=== PATIENT | female | born 1990 | race Caucasian/White ===

== ENCOUNTER 2018-04-01 01:32 | Emergency (ER) | payer OTHER ==
[2018-04-01] MEDS ORDERED: Phenergan 25 MG INJ IV ONE (01:56)
[2018-04-01] MEDS ORDERED: Sodium Chloride 0.9% 1000 ML 1,000 ML IV STA ×2 (01:56→02:38)
[2018-04-01] MEDS ORDERED: Sodium Chloride 0.9% 1000 ML 1,000 ML ONE ×2 (02:00→03:24)
[2018-04-01] MEDS ORDERED: Phenergan 25 MG INJ ONE (02:00)
--- NOTE | 2018-04-01 02:02 | ERPHSYRPT ---
- History of Present Illness Time Seen by Provider: 04/01/18 01:52 Historian: patient Exam Limitations: no limitations Patient Subjective Stated Complaint: pt states she has been having lower abd/ pelvic and lower back pain for approx 1 hour. Triage Nursing Assessment: pt alert and oriented, answers questions approp. pt ambulaotry with steady gait ntoed, respirations nonlabored with lungs cta. abd soft with hypo bowel opunds noted in all 4 quads. no urine assessed, pt unable to urinate at this time. Physician History: 27-year-old white female with history of diabetes, hypothyroidism, arrives with complaint of lower abdominal pain bilateral suprapubic and periumbilical also lower back pain symptoms for one hour. Patient states she's had nausea no vomiting. She denies any dysuria or hematuria. Past medical history includes type 1 diabetes, hypothyroidism Past surgical history includes partial thyroidectomy. Timing/Duration: today (symptoms for an hour) Activities at Onset: none Quality: aching, cramping Abdominal Pain Onset Location: RLQ, LLQ, periumbilical, other (low back) Pain Radiation: back (low back) Severity of Pain-Max: moderate Severity of Pain-Current: moderate Modifying Factors: Improves With: nothing Associated Symptoms: back (low back pain), nausea, No chest pain, No diaphoresis , No diarrhea, No fever/chills, No fatigue, No headache, No heartburn, No loss of appetite, No neck pain, No rash, No shortness of breath, No syncope, No vomiting, No weakness Previous symptoms: no prior history Allergies/Adverse Reactions: No Known Drug Allergies Allergy (Verified 04/01/18 01:51) Home Medications: Insulin Lispro [Humalog] 0 unit SQ UD 04/01/18 [History] Levothyroxine Sodium 100 Mcg [Synthroid 100 Mcg] 100 mcg PO DAILY 04/01/18 [History] Hx Tetanus, Diphtheria Vaccination/Date Given: Yes Hx Influenza Vaccination/Date Given: Yes Hx Pneumococcal Vaccination/Date Given: No Immunizations Up to Date: Yes - Review of Systems Constitutional: No Fever, No Chills Eyes: No Symptoms Ears, Nose, & Throat: No Symptoms Respiratory: No Cough, No Dyspnea Cardiac: No Chest Pain, No Edema, No Syncope Abdominal/Gastrointestinal: Abdominal Pain (abdominal pain bilatera suprapubic region and periumbilical region), Nausea, No Vomiting, No Diarrhea, No Constipation, No Hematemesis, No Hematochezia, No Melena, No Dysphagia, No Appetite Changes Genitourinary Symptoms: Vaginal Bleeding (patient states she started her menstrual period 40 minutes ago), No Dysuria, No Frequency, No Hematuria, No Hesitancy, No Incontinence, No Urgency, No Urinary Retention, No Flank Pain, No Menorrhagia, No , No Vaginal Discharge, No Vaginal Itching Musculoskeletal: Back Pain (low back pain), No Arthralgias, No Neck Pain, No Deformity, No Fall Skin: No Rash Neurological: No Dizziness, No Focal Weakness, No Sensory Changes Psychological: No Symptoms Endocrine: No Symptoms All Other Systems: Reviewed and Negative - Past Medical History Pertinent Past Medical History: Yes Endocrine Medical History: Diabetes Type I, Hypothyroidism - Past Surgical History Past Surgical History: Yes Other Surgical History: partial thyroidectomy - Social History Smoking Status: Never smoker Exposure to second hand smoke: No Drug Use: none Patient Lives Alone: No - Female History Hx Last Menstrual Period: yesterday Hx Now: No - Nursing Vital Signs Nursing Vital Signs: Initial Vital Signs Pulse Rate 90 04/01/18 01:40 Respiratory Rate 16 04/01/18 01:40 Blood Pressure 120/64 04/01/18 01:40 O2 Sat by Pulse Oximetry 99 04/01/18 01:40 Pain Scale Pain Intensity 4 - Physical Exam General Appearance: mild distress, alert Eye Exam: PERRL/EOMI, eyes nml inspection Ears, Nose, Throat Exam: normal ENT inspection, pharynx normal, moist mucous membranes Neck Exam: normal inspection, non-tender, supple, full range of motion Respiratory Exam: normal breath sounds, lungs clear, No respiratory distress Cardiovascular Exam: regular rate/rhythm, normal heart sounds Gastrointestinal/Abdomen Exam: soft, normal bowel sounds, tenderness ( Suprapubic and bilateral lower abdominal pain), No distention, No mass, No guarding, No ecchymosis, No pulsatile mass, No rebound, No hernia, No hepatomegaly, No organomegaly, No splenomegaly, No bruit Back Exam: normal range of motion, other (duster tender midline and bilateral low lumbar region with palpation), No CVA tenderness Extremity Exam: normal inspection, normal range of motion, pelvis stable Neurologic Exam: alert, oriented x 3, cooperative, family services specialist II-XII nml as tested, normal mood/affect, nml cerebellar function, sensation nml, No motor deficits Skin Exam: normal color, warm, dry SpO2 Interpretation: normal (99%) SpO2: 99 Oxygen Delivery: Room Air - Course Nursing assessment & vital signs reviewed: Yes Ordered Tests: Active Orders 24 hr Category Date Time Status Accucheck STAT Care 04/01/18 04:16 Active IV Insertion STAT Care 04/01/18 01:56 Active AMYLASE Stat Lab 04/01/18 02:10 Completed CBC W DIFF Stat Lab 04/01/18 02:10 Completed CMP Stat Lab 04/01/18 02:10 Completed HCG QUALITATIVE,SERUM Stat Lab 04/01/18 02:10 Completed LIPASE Stat Lab 04/01/18 02:10 Completed UA W/RFX UR CULTURE Stat Lab 04/01/18 02:57 Completed Urine Triage Profile Stat Lab 04/01/18 02:57 Completed VENOUS BLOOD GAS Urgent Lab 04/01/18 03:26 Completed Medication Summary Discontinued Medications Generic Name Dose Route Start Last Admin Trade Name Kimberly PRN Reason Stop Dose Admin Sodium Chloride 1,000 mls @ 999 mls/hr 04/01/18 01:56 04/01/18 04:30 Sodium Chloride 0.9% 1000 Ml IV 04/01/18 02:56 Infused .Q1H1M STA Infusion Sodium Chloride Confirm 04/01/18 02:00 Sodium Chloride 0.9% 1000 Ml Administered 04/01/18 02:01 Dose 1,000 mls @ ud .ROUTE .STK-MED ONE Sodium Chloride 1,000 mls @ 999 mls/hr 04/01/18 02:38 04/01/18 04:31 Sodium Chloride 0.9% 1000 Ml IV 04/01/18 03:38 Infused .Q1H1M STA Infusion Sodium Chloride Confirm 04/01/18 03:24 Sodium Chloride 0.9% 1000 Ml Administered 04/01/18 03:25 Dose 1,000 mls @ ud .ROUTE .STK-MED ONE Promethazine HCl 12.5 mg 04/01/18 01:56 04/01/18 02:18 Phenergan 25 Mg Inj IV 04/01/18 01:57 12.5 mg STAT ONE Administration Promethazine HCl Confirm 04/01/18 02:00 Phenergan 25 Mg Inj Administered 12/26/18 02:01 Dose 25 mg .ROUTE .STK-MED ONE Lab/Rad Data: Laboratory Result Diagrams 04/01/18 02:10 04/01/18 02:10 Laboratory Results 04/01/18 04/01/18 04/01/18 Range/Units 03:26 02:57 02:57 WBC (4.0-10.5) K/mm3 RBC (4.1-5.4) M/mm3 Hgb (12.0-16.0) gm/dl Hct (35-47) % MCV (78-100) fl MCH (26-32) pg MCHC (32-36) g/dl RDW (11.5-14.0) % Plt Count (150-450) K/mm3 MPV (6-9.5) fl Gran % (36.0-66.0) % Eos # (Auto) (0-0.5) Absolute Lymphs (auto) (1.0-4.6) Absolute Monos (auto) (0.0-1.3) Lymphocytes % (24.0-44.0) % Monocytes % (0.0-12.0) % Eosinophils % (0.00-5.0) % Basophils % (0.0-0.4) % Absolute Granulocytes (1.4-6.9) Basophils # (0-0.4) pO2/FiO2 Ratio 21.0 % VBG pH 7.41 (7.32-7.42) VBG pCO2 at Pat Temp 34 L (42-55) mm/Hg VBG pO2 at Pat Temp 52 H (25-40) mm/Hg VBG HCO3 21.6 L (22-28) meq/L VBG O2 Sat (Lesli) 92.8 L (95-100) VBG Base Excess -2.4 L (-2.0-2.0) VBG Hemoglobin 12.3 VBG Carboxyhemoglobin 3.1 (0.0-6.9) % T HGB POC Potassium 3.9 (3.5-5.1) Sodium (137-145) mmol/L Potassium (3.5-5.1) mmol/L Chloride (98-107) mmol/L Carbon Dioxide (22-30) mmol/L Anion Gap (5-15) MEQ/L BUN (7-17) mg/dL Creatinine (0.52-1.04) mg/dL Estimated GFR ML/MIN Glucose (74-106) mg/dL Calcium (8.4-10.2) mg/dL Total Bilirubin (0.2-1.3) mg/dL AST (14-36) U/L ALT (0-35) U/L Alkaline Phosphatase (38-126) U/L Serum Total Protein (6.3-8.2) g/dL Albumin (3.5-5.0) g/dL Amylase (30-110) U/L Lipase (23-300) U/L Serum , Qual (Negative) Urine Color STRAW (YELLOW) Urine Appearance CLEAR (CLEAR) Urine pH 7.0 (5-6) Ur Specific [place] 1.028 (1.005-1.025) Urine Protein NEGATIVE (Negative) Urine Ketones NEGATIVE (NEGATIVE) Urine Blood NEGATIVE (0-5) Can/ul Urine Nitrite NEGATIVE (NEGATIVE) Urine Bilirubin NEGATIVE (NEGATIVE) Urine Urobilinogen NEGATIVE (0-1) mg/dL Ur Leukocyte Esterase NEGATIVE (NEGATIVE) Urine WBC (Auto) NONE (0-5) /HPF Urine RBC (Auto) NONE (0-2) /HPF U Epithel Cells (Auto) NONE (FEW) /HPF Urine Bacteria (Auto) NONE (NEGATIVE) /HPF Urine Culture Reflexed NO (NO) Urine Glucose >=500 (NEGATIVE) mg/dL Urine Opiates Level NEGATIVE (NEGATIVE) Ur Methadone NEGATIVE (NEGATIVE) Urine Barbiturates NEGATIVE (NEGATIVE) Ur Phencyclidine (PCP) NEGATIVE (NEGATIVE) Urine Amphetamine NEGATIVE (NEGATIVE) U Benzodiazepine Level NEGATIVE (NEGATIVE) Urine Cocaine NEGATIVE (NEGATIVE) Urine Marijuana (THC) NEGATIVE (NEGATIVE) 04/01/18 04/01/18 04/01/18 Range/Units 02:10 02:10 02:10 WBC 7.0 (4.0-10.5) K/mm3 RBC 4.08 L (4.1-5.4) M/mm3 Hgb 12.7 (12.0-16.0) gm/dl Hct 37.5 (35-47) % MCV 91.9 (78-100) fl MCH 31.1 (26-32) pg MCHC 33.9 (32-36) g/dl RDW 12.0 (11.5-14.0) % Plt Count 251 (150-450) K/mm3 MPV 11.0 H (6-9.5) fl Gran % 62.9 (36.0-66.0) % Eos # (Auto) 0.20 (0-0.5) Absolute Lymphs (auto) 1.85 (1.0-4.6) Absolute Monos (auto) 0.51 (0.0-1.3) Lymphocytes % 26.5 (24.0-44.0) % Monocytes % 7.3 (0.0-12.0) % Eosinophils % 2.9 (0.00-5.0) % Basophils % 0.4 (0.0-0.4) % Absolute Granulocytes 4.38 (1.4-6.9) Basophils # 0.03 (0-0.4) pO2/FiO2 Ratio % VBG pH (7.32-7.42) VBG pCO2 at Pat Temp (42-55) mm/Hg VBG pO2 at Pat Temp (25-40) mm/Hg VBG HCO3 (22-28) meq/L VBG O2 Sat (Lesli) (95-100) VBG Base Excess (-2.0-2.0) VBG Hemoglobin VBG Carboxyhemoglobin (0.0-6.9) % T HGB POC Potassium (3.5-5.1) Sodium 137 (137-145) mmol/L Potassium 4.6 (3.5-5.1) mmol/L Chloride 104 (98-107) mmol/L Carbon Dioxide 24 (22-30) mmol/L Anion Gap 13.9 (5-15) MEQ/L BUN 11 (7-17) mg/dL Creatinine 0.51 L (0.52-1.04) mg/dL Estimated GFR > 60.0 ML/MIN Glucose 468 H (74-106) mg/dL Calcium 8.8 (8.4-10.2) mg/dL Total Bilirubin 0.90 (0.2-1.3) mg/dL AST 7 L (14-36) U/L ALT 10 (0-35) U/L Alkaline Phosphatase 81 (38-126) U/L Serum Total Protein 7.1 (6.3-8.2) g/dL Albumin 4.2 (3.5-5.0) g/dL Amylase 48 (30-110) U/L Lipase 83 (23-300) U/L Serum , Qual NEGATIVE (Negative) Urine Color (YELLOW) Urine Appearance (CLEAR) Urine pH (5-6) Ur Specific [place] (1.005-1.025) Urine Protein (Negative) Urine Ketones (NEGATIVE) Urine Blood (0-5) Can/ul Urine Nitrite (NEGATIVE) Urine Bilirubin (NEGATIVE) Urine Urobilinogen (0-1) mg/dL Ur Leukocyte Esterase (NEGATIVE) Urine WBC (Auto) (0-5) /HPF Urine RBC (Auto) (0-2) /HPF U Epithel Cells (Auto) (FEW) /HPF Urine Bacteria (Auto) (NEGATIVE) /HPF Urine Culture Reflexed (NO) Urine Glucose (NEGATIVE) mg/dL Urine Opiates Level (NEGATIVE) Ur Methadone (NEGATIVE) Urine Barbiturates (NEGATIVE) Ur Phencyclidine (PCP) (NEGATIVE) Urine Amphetamine (NEGATIVE) U Benzodiazepine Level (NEGATIVE) Urine Cocaine (NEGATIVE) Urine Marijuana (THC) (NEGATIVE) - Progress Progress: improved Progress Note: 04/01/18 03:55 27-year-old white female with history of hypothyroidism, diabetes type 1 who has an insulin pump. Arrives with complaint of lower abdominal pain for one hour since prior to arrival states she is also having low back pain. She is nauseous. Patient's vitals are stable she has some mild suprapubic and bilateral lower abdominal tenderness with palpation patient had elevated blood sugar of 468 however the patient was not acidotic Patient is being given 2 L of normal saline and 12.5 mg of Phenergan she is feeling better she states she feels somewhat tired. Patient's labs sodium 137 potassium 4.6 chloride 104 bicarbonate 24 BUN 11 creatinine 0.51 glucose 468 amylase and lipase are normal at 48 and 83 respectively patient's venous gases show a pH of 7.41 and a PCO2 of 34 urine drug screen is negative CBC white blood cell 7.0 hemoglobin 12.7 hematocrit 37.5 platelets are 251 urinalysis is unremarkable with the exception of a glucose of greater than 500. there are no ketones in the urine. HCG is negative. Impression lower abdominal pain, low back pain, hyperglycemia. Plan recheck Accu-Chek after 2 L of normal saline has been infused, 04/01/18 04:31 Patient is feeling better. Blood sugar is now 266 after receiving 2 L of normal saline. Patient states she has a pump from [employer] and she is able to adjust her pump herself. She states she is from [place] and does not have a local doctor. Will discharge patient. Patient to drink plenty of fluids clear fluids only 24-48 hours if abdominal pain, Tylenol as needed for pain, Follow-up with her family doctor (list), Return for acute distress or for severe symptoms or for any problems, - Departure Time of Disposition: 04:32 Departure Disposition: Home Clinical Impression: Hyperglycemia Abdominal pain Qualifiers: Abdominal location: lower abdomen, unspecified Qualified Code(s): R10.30 - Lower abdominal pain, unspecified Low back pain Qualifiers: Chronicity: acute Back pain laterality: unspecified Sciatica presence: without sciatica Qualified Code(s): M54.5 - Low back pain Condition: Fair Critical Care Time: No Referrals: DOCTOR,NO FAMILY [Primary Care Provider] - Additional Instructions: Return home. Plenty of fluids clear fluids only 24-48 hours if abdominal pain. Tylenol every 4 hours as needed for pain. Your blood sugars were greater than 460. you will need to monitor your blood sugars and adjust her pump accordingly. Follow-up with your family doctor (list) Return for acute distress severe symptoms, or for any problems,
[2018-04-01 02:12] LABS: BASOPHIL % 0.4 % (0.0-0.4); Basophil (Absolute #) 0.03 (0-0.4); Eosinophil % 2.9 % (0.00-5.0); Granulocyte Absolute (ANC) 4.38 (1.4-6.9); Granulocytes % 62.9 % (36.0-66.0); Hematocrit 37.5 % (35-47); Hemoglobin 12.7 gm/dl (12.0-16.0); Lymphocyte (Absolute #) 1.85 (1.0-4.6); Lymphocytes % 26.5 % (24.0-44.0); Mean Cell Volume 91.9 fl (78-100); Mean Corpuscular Hemoglobin 31.1 pg (26-32); Mean Corpuscular Hgb Concent. 33.9 g/dl (32-36); Monocyte (Absolute #) 0.51 (0.0-1.3); Monocytes % 7.3 % (0.0-12.0); Platelet Count 251 K/mm3 (150-450); Red Blood Count 4.08 M/mm3 (4.1-5.4)
[2018-04-01 02:35] LABS: ALBUMIN 4.2 g/dL (3.5-5.0); ALKALINE PHOSPHATASE 81 U/L (38-126); AMYLASE 48 U/L (30-110); ANION GAP 13.9 MEQ/L (5-15); BLOOD UREA NITROGEN 11 mg/dL (7-17); CHLORIDE 104 mmol/L (98-107); Calcium 8.8 mg/dL (8.4-10.2); Carbon Dioxide 24 mmol/L (22-30); Creatinine 1 0.51 mg/dL (0.52-1.04); Glucose 468 mg/dL (74-106); LIPASE 83 U/L (23-300); Potassium 4.6 mmol/L (3.5-5.1); SGOT/AST 7 U/L (14-36); SGPT/ALT 10 U/L (0-35); SODIUM 137 mmol/L (137-145); Total Protein 7.1 g/dL (6.3-8.2)
[2018-04-01 03:05] LABS: Appearance CLEAR (CLEAR); Bilirubin NEGATIVE (NEGATIVE); Blood NEGATIVE Ery/ul (0-5); Glucose >=500 mg/dL (NEGATIVE); Ketones NEGATIVE (NEGATIVE); Leukocyte Esterase NEGATIVE (NEGATIVE); Nitrite NEGATIVE (NEGATIVE); Protein,Urine Dip NEGATIVE (Negative); Specific Gravity 1.028 (1.005-1.025); Urobilinogen NEGATIVE mg/dL (0-1)
[2018-04-01 03:31] LABS: VBG BASE EXCESS -2.4 (-2.0-2.0); VBG CARBOXYHEMOGLOBIN 3.1 % T HGB (0.0-6.9); VBG HCO3- 21.6 meq/L (22-28); VBG HEMOGLOBIN 12.3; VBG O2 SATURATION 92.8 (95-100); VBG POTASSIUM 3.9 (3.5-5.1); VBG pH 7.41 (7.32-7.42)
[2018-04-01 03:35] LABS: Amphetamine,Urine NEGATIVE (NEGATIVE); Barbiturate,Urine NEGATIVE (NEGATIVE); Benzodiazepine,Urine NEGATIVE (NEGATIVE); Cocaine,Urine NEGATIVE (NEGATIVE); Methadone,Urine NEGATIVE (NEGATIVE); Opiate,Urine NEGATIVE (NEGATIVE); PCP,Urine NEGATIVE (NEGATIVE); THC,Urine NEGATIVE (NEGATIVE)
[2018-04-01 04:30] VITALS: BP 112/71; PULSE 74
[2018-04-01 04:35] VITALS: O2SAT 99
== END 2018-04-01 04:45 | disposition home or self-care (01) ==
LOC: ED 01:32
DX: E10.65 Type 1 diabetes mellitus with hyperglycemia (principal); Z79.4 Long term (current) use of insulin; R10.31 Right lower quadrant pain; R10.32 Left lower quadrant pain; R10.33 Periumbilical pain; M54.5 Low back pain; Z79.899 Other long term (current) drug therapy
CPT/HCPCS: 36000; 36415; 80053; 80307; 81001; 81025; 82150; 82805; 82962; 83690; 85025; 96360; 96361; 96374; 99284; J2550